=== PATIENT | female | born 1975 | race Caucasian/White ===

== ENCOUNTER 2019-01-08 05:40 | Observation (INO) | payer OTHER ==
--- NOTE | 2019-01-06 07:54 | PREOPHP ---
DATE OF ADMISSION: 01/08/2019 The patient is coming on Tuesday, January 08, 2019, for a surgical procedure. HISTORY OF PRESENT ILLNESS: This is a 43-year-old female 5, para 3, abortions 2, living 3 [facility], a history of loss of urine with urgency and Valsalva maneuvers for a long time. The patient now has been getting worse to the point that she has to wear a pad. She was also told to have a blad dennis prolapse by another physician and she was referred to me. She suffers from constipation and she has an IUD for 11 years without periods. The patient history ____ breast implants. The patient is a smoker. ALLERGIES: SHE IS ALLERGIC TO PENICILLIN. MEDICATIONS: She is on Wellbutrin. FAMILY HISTORY: Hypertension. REVIEW OF SYSTEMS: The patient has no heart condition. No lung disease. She smokes 3 to 6 cigarett es a day for the last 15 years and she drinks only every 2 weeks. The patient has no endocrine probl ems. No lung problems. No other systems problems and is noncontributory. She has been ALLERGIC TO P ENICILLIN and she has a family history for hypertension. PHYSICAL EXAMINATION: VITAL SIGNS: Stable. The blood pressure is 118/80, pulse is 80, respirations 16. She weighs 185. She is 5 feet 2 inches. HEAD AND NECK: Normal. BREASTS: Soft, nontender, with implants. CHEST: Clear. HEART: Normal sinus rhythm. BACK: Normal. ABDOMEN: Soft, nontender, no masses. GENITALIA: With a cystourethrocele grade III, and uterus hypertrophic normal size, retroverted, flex ed, painful mobilization, rectocele grade III and adnexa were nonpalpable. On the ultrasound that the patient had at her clinic it was just with a hypertrophic uterus without a ny findings of malignancies or any growth. Both ovaries were normal. The patient was advised for an anterior and posterior repair with a sling and a graft. She has been advised of the possible risks and possible complications of the procedure with her alternatives and options. Written information w as provided about the sling versus no sling and she had agreed to go ahead with the procedure without any doubts and she had been given all the facts and she has been given her options and possible comp lications of the graft and sling and she agreed to go ahead with the procedure after reading all the possible complications, risks, or benefits of it. DIAGNOSES: Cystourethrocele grade III with mixed incontinence, rectocele grade III with constipation and hypertrophic uterus. PLAN: She is undergoing an anterior and posterior repair with a sling and a graft without a hysterec terrence and due to the fact that the uterus is slightly hypertrophic, but normal size and not prolapse. Dictated By: IMTIAZ PRINCE/RODGER Conf#: [id number] DID#: [id number]
[2019-01-07 16:39] VITALS: Ht 160 cm; Wt 85.5 kg
[~2019-01-08] VITALS: Ht 160 cm; Wt 85.5 kg
[2019-01-08] VITALS (27 sets, daily range): BP systolic 92–136; BP diastolic 33–83; PULSE 66–93; RESP 10–25
[2019-01-08] MEDS ORDERED: ONDANSETRON 4 MG INJ ONE (07:00)
[2019-01-08] MEDS ORDERED: CEFAZOLIN 1 GM INJ ONE ×2 (07:00→08:08)
[2019-01-08] MEDS ORDERED: DEXAMETHASONE 4 MG/ML 5 ML INJ ONE (07:00)
[2019-01-08] MEDS ORDERED: SEVOFLURANE 15 MIN ONE (07:00)
[2019-01-08] MEDS ORDERED: BUPIVACAINE 0.5%/EPI (SDV) 30 ML INJ ONE ×2 (07:02→09:27)
[2019-01-08] MEDS ORDERED: POLYMYXIN/BACITRACIN 1L IRRIG ONE (07:02)
[2019-01-08] MEDS ORDERED: THROMBIN (BOVINE) 5,000 UNIT VIAL TP ONE (07:02)
--- NOTE | 2019-01-08 07:18 | PREAC ---
Date/Time of Note Date/Time of Note DATE: 01/08/19 TIME: 07:16 Anesthesia Eval and Record Evaluation Time Pre-Procedure Interview DATE: 01/08/19 TIME: 07:16 Age 43 Sex female NPO: 8 hrs Preoperative diagnosis cystourethrocoele, rectoceole Planned procedure anterior posterior sling repair Past Medical History Past Medical History: Includes Pulm: Smoking Hx Psych: Depression, Anxiety Surgery & Anesthesia Issues No known issue Meds Anticoagulation: No Beta Priscilla within 24 hr: No Reason Beta Rpiscilla not given: Pt. not on B-Priscilla Meds reviewed: Yes Allergies Allergies Reviewed: Yes Labs/Studies Labs Reviewed: Reviewed by anesthesiologist test: Negative Pre-procedure Exam Last vitals Vital Signs Date Temp Pulse Resp B/P (MAP) Pulse Ox O2 O2 Flow FiO2 Time Delivery Rate 01/08/19 97.6 71 21 132/73 97 Room Air 05:54 (92) Airway: Adequate mouth opening, Adequate thyromental dist Mallampati: Mallampati III Teeth: Normal Lung: Normal Heart: Normal ASA Physical Status ASA physical status: 2 Emergency: None Planned Anesthetic General/MAC: ETT Planned Pain Management Sub-arachniod narcotics, Single shot nerve block, Parenteral pain med, Other neuraxial med, Local by surgeon Pre-operative Attestations Prior to commencing anesthesia and surgery, the patient was re-evaluated, there was verification of: *The patient's identity *The results of appropriate recent lab work and preoperative vital signs *The above evaluation not changing prior to induction *Anesthetic plan, risk benefits, alternative and complications discussed with patient/family; questions answered; patient/family understands, accepts and wishes to proceed. DEVYN CRANE MD Jan 08, 2019 07:18
[2019-01-08] MEDS ORDERED: SUCCINYLCHOLINE CHLORIDE 100 MG/5 ML SYG IV ONE (07:27)
[2019-01-08] MEDS ORDERED: PROPOFOL 20 ML ONE (07:27)
[2019-01-08] MEDS ORDERED: LIDOCAINE 2% (SDV) 5 ML INJ ONE (07:27)
[2019-01-08] MEDS ORDERED: FENTAnyl 50 MCG/ML VIAL ONE (07:27)
[2019-01-08] MEDS ORDERED: ROCURONIUM 50 MG INJ ONE (07:27)
[2019-01-08] MEDS ORDERED: MIDAZOLAM 1 MG/ML 2 ML INJ ONE (07:27)
[2019-01-08] MEDS ORDERED: METOCLOPRAMIDE 10 MG INJ ONE (07:28)
[2019-01-08] MEDS ORDERED: LABETALOL HCL 20MG INJ IV PRN (07:30)
[2019-01-08] MEDS ORDERED: hydrALAzine 20 MG INJ IV PRN (07:30)
[2019-01-08] MEDS ORDERED: MEPERIDINE 25 MG INJ IV PRN (07:30)
[2019-01-08] MEDS ORDERED: LORAZEPAM 2 MG INJ IV PRN (07:30)
[2019-01-08] MEDS ORDERED: KETOROLAC 30 MG INJ IV PRN (07:30)
[2019-01-08] MEDS ORDERED: MIDAZOLAM 1 MG/ML 2 ML INJ IV PRN (07:30)
[2019-01-08] MEDS ORDERED: IPRATROPIUM (NEB) 0.5 MG/2.5 ML AMP HHN PRN (07:30)
[2019-01-08] MEDS ORDERED: DIPHENHYDRAMINE 50 MG INJ IV PRN (07:30)
[2019-01-08] MEDS ORDERED: HYDROmorphONE 1 MG/5 ML IV SYRINGE IV PRN ×3 (07:30)
[2019-01-08] MEDS ORDERED: ONDANSETRON 4 MG INJ IV PRN (07:30)
[2019-01-08] MEDS ORDERED: LEVALBUTEROL (NEB) 1.25 MG/0.5 ML AMP HHN PRN (07:30)
[2019-01-08] MEDS ORDERED: HALOPERIDOL 5 MG INJ IV PRN (07:30)
[2019-01-08] MEDS ORDERED: FENTAnyl 50 MCG/ML VIAL IV PRN ×2 (07:30)
[2019-01-08] MEDS ORDERED: morphine SULFATE/PF (10 MG/10 ML) INJ ONE (07:50)
[2019-01-08] MEDS ORDERED: EPINEPHrine 1 MG INJ ONE (07:52)
--- NOTE | 2019-01-08 10:17 | PAC ---
Date/Time of Note Date/Time of Note DATE: 01/08/19 TIME: 10:16 Post-Anesthesia Notes Post-Anesthesia Note Last documented vital signs Vital Signs Date Temp Pulse Resp B/P (MAP) Pulse Ox O2 O2 Flow FiO2 Time Delivery Rate 01/08/19 97.6 71 21 132/73 97 Room Air 05:54 (92) Activity: WNL Respiratory function: WNL Cardiovascular function: WNL Mental status: Baseline Pain reasonably controlled: Yes Hydration appropriate: Yes Nausea/Vomiting absent: Yes DEVYN CRANE MD Jan 08, 2019 10:17
--- NOTE | 2019-01-08 10:29 | HPN ---
Date/Time of Note Date/Time of Note DATE: 01/08/19 TIME: 10:29 Interval H&P Admission Note Pt. seen H&P reviewed: No system changes IMTIAZ LYNN MD Jan 08, 2019 10:29
[2019-01-08] MEDS ORDERED: HYDROCODONE/APAP (5/325) TAB PO PRN ×2 (10:30)
[2019-01-08] MEDS: KETOROLAC 30 MG INJ IV SCH ×3 (10:30→22:19)
[2019-01-08] MEDS ORDERED: ZOLPIDEM 5 MG TAB PO PRN (10:30)
[2019-01-08] MEDS ORDERED: DIPHENHYDRAMINE 50 MG CAP PO PRN (10:30)
--- NOTE | 2019-01-08 10:32 | SIPON ---
Date/Time of Note Date/Time of Note DATE: 01/08/19 TIME: 10:29 Operative Report Preoperative Diagnosis Cystourethrocele grade 3 with mixed incontinence Rectocele grade 3 with constipation Hypertrophic uterus prolapse grade 2 Postoperative Diagnosis Same Operation/Procedure Performed Anterior and posterior repair Suburethral sling Acell and Xenform graft Cystoscopy Surgeon see signature line nursing home assistant automotive specialty technician Anesthesia: general Estimated blood loss: 50 - 100 ml's Transfusion Required none Specimen Vaginal mucosa Grafts/Implants none Complications none IMTIAZ LYNN MD Jan 08, 2019 10:32
[2019-01-08] MEDS ORDERED: ONDANSETRON INJ 6 MG in DEXTROSE 5% 50 ML IVPB PRN (11:00)
[2019-01-08] MEDS: LACTATED RINGER'S 1,000 ML IV SCH ×2 (11:30→17:53)
--- NOTE | 2019-01-08 11:38 | OPR ---
DATE OF OPERATION: 01/08/2019 PREOPERATIVE DIAGNOSES: Cystourethrocele grade III, with mixed incontinence, rectocele grade III wit h constipation, hypertrophic uterus prolapse, grade II. POSTOPERATIVE DIAGNOSES: Cystourethrocele grade III, with mixed incontinence, rectocele grade III wi th constipation, hypertrophic uterus prolapse, grade II. OPERATION PERFORMED: Anterior and posterior repair, suburethral sling, ACell and Zenform graft and c ystoscopy. ANESTHESIOLOGIST: Dr. Milan. COMPLICATIONS: None. PROCEDURE: The patient was given general and spinal epidural anesthesia, placed in the lithotomy pos ition. The perineal and vaginal area were prepped and draped. The vaginal examination revealed that there was a grade III rectocele and cystourethrocele. The uterus was very hypertrophic with a very large cervix and an IUD and had prolapse, grade II only. The vaginal speculum was applied. The Fole y catheter was placed in and a midline incision was made 2 cm below the urethral meatus all the way t o the cervix. The injection of Xylocaine and epinephrine was given underneath the bladder at the freddy ction of the marcelino-urethral fascia. Xylocaine and epinephrine was injected and a midline incision was made. The dissection of the bladder from the anterior vaginal mucosa was done digitally and with Me cordellbaum and the dissection was carried all the way up to behind the obturator internal muscle. The bladder was sutured and plicated with a pursestring suture with 2-0 Vicryl and the suburethral sling was placed. The Obtryx sling was applied at the level of the mid urethra by localizing the obturator membrane at the level of the clitoris 2 cm below the urethral meatus, 2 cm below the adductor longus tendon. A heath was done on the skin, and the entrance of the needle was done in both sides and perf orating the membrane of the obturator and reaching the paraurethral area where the sling was attached to the needle, and the needle was brought up, bringing the arm of the sling through the obturator ca nal. A piece of Zenform and a piece of ACell graft was placed on the urethral area and was fixed to the chahal with a 2-0 Vicryl and then the sling was approximated to these structures to prevent pressu re on the bladder. The remnant of the sleeves of the sling were cut through at the level of the skin and the entrance was sealed with Dermabond. The other side of the sling was covered up with a piece of Zenform and the vagina was closed with 2-0 Vicryl suture vertically interrupted sutures. A cysto scopy was done and apparently everything looked okay although we had technical problems with the cyst oscope. Posterior repair was started by making a triangular incision at the level of the perineum. Injection of the same Xylocaine and epinephrine was injected posteriorly and the separation of the mu cosa from the rectocele was done and a vertical incision midline was made to about 5 cm at the vagina l canal. The rectocele was reduced with 2-0 Vicryl suture. The remnant of vaginal mucosa was trimme d and the vaginal mucosa was closed with interrupted sutures with 2-0 Vicryl. At the perineal area, the levator ani were tucked from one side to the other side with an 0 Vicryl and the lift of the marcelino neum was observed and the rest of the perineum was closed with 2-0 Vicryl and 3-0 Vicryl and then Simone form gauze was left in the vagina for pressure, and the patient tolerated the procedure well and left the OR awake and stable. Sponge counts and instrument counts were correct. Intravenous antibiotics were given for prophylaxis. Blood loss was minimal, less than 100 mL, and the urine was clear at th e end of the procedure. A note should be placed that Surgicel was placed in both corners at the leve l of the internal obturator muscle for control of venous bleeding, which was successful. Dictated By: IMTIAZ PRINCE/RODGER Conf#: [id number] DID#: [id number] CC: IMTIAZ LYNN MD;*EndCC*
[2019-01-08] MEDS: METOCLOPRAMIDE 10 MG TAB PO SCH ×3 (12:00→23:57)
--- NOTE | 2019-01-08 13:19 | PAC ---
Date/Time of Note Date/Time of Note DATE: 01/08/19 TIME: 13:19 Post-Anesthesia Notes Post-Anesthesia Note Last documented vital signs Vital Signs Date Temp Pulse Resp B/P (MAP) Pulse Ox O2 O2 Flow FiO2 Time Delivery Rate 01/08/19 Nasal 2.0 12:19 Cannula 01/08/19 97.8 12:10 01/08/19 66 15 121/60 97 12:07 (80) Activity: WNL Respiratory function: WNL Cardiovascular function: WNL Mental status: Baseline Pain reasonably controlled: Yes Hydration appropriate: Yes Nausea/Vomiting absent: Yes DEVYN CRANE MD Jan 08, 2019 13:19
[2019-01-08] MEDS: CEFAZOLIN 1 GM/50 ML (PMX) 50 ML IVPB SCH ×2 (15:32→22:13)
[2019-01-08] MEDS: ACETAMINOPHEN 325 MG TAB PO PRN (23:57)
[2019-01-09] MEDS: LACTATED RINGER'S 1,000 ML IV SCH ×3 (02:20→18:20)
[2019-01-09 05:00] VITALS: BP 106/62; PULSE 88; RESP 18
[2019-01-09] MEDS: KETOROLAC 30 MG INJ IV SCH ×4 (05:25→21:56)
[2019-01-09] MEDS: CEFAZOLIN 1 GM/50 ML (PMX) 50 ML IVPB SCH ×2 (05:25→14:00)
[2019-01-09] MEDS: METOCLOPRAMIDE 10 MG TAB PO SCH ×4 (05:26→23:30)
[2019-01-09 07:10] VITALS: BP 105/55; PULSE 82; RESP 15
[2019-01-09 14:47] VITALS: BP 104/57; PULSE 89; RESP 14
[2019-01-09 19:59] VITALS: BP 110/68; PULSE 87; RESP 18
--- NOTE | 2019-01-09 20:38 | PN ---
Date/Time of Note Date/Time of Note DATE: 01/09/19 TIME: 20:36 Assessment/Plan Lines/Catheters IV Catheter Type (from Nrs): Saline Lock Mendez in Place (from Nrsg): No Subjective 24 Hr Interval Summary Day first after A&P repair sling and graft Patient is afebrile but white count is elevated She feels bloated The report today was that she was voiding well and passing gases and tolerating diet I will start her on Keflex prophylactically and will repeat his CBC tomorrow to check on her white count to be able to send her home if it is coming down Constitutional: no complaints Feeding: advancing diet Detailed Summary Eyes: no complaints ENT: no complaints Respiratory: no complaints Cardiovascular: no complaints Gastrointestinal: no complaints Genitourinary: no complaints Musculoskeletal: no complaints Skin: no complaints Neurologic: no complaints Endocrine: no complaints Lymphatic: no complaints Psychological: no complaints, nl mood/affect Immunologic: no complaints Exam/Review of Systems Vital Signs Vitals Vital Signs Date Temp Pulse Resp B/P (MAP) Pulse Ox O2 O2 Flow FiO2 Time Delivery Rate 01/09/19 99.0 87 18 110/68 96 Room Air 19:59 (82) 01/08/19 2.0 13:30 Intake and Output 01/08/19 01/08/19 01/09/19 1515:00 23:00 07:00 IntakeIntake Total 2500 ml 170 ml 1710 ml OutputOutput Total 610 ml 820 ml 1600 ml BalanceBalance 1890 ml -650 ml 110 ml Results Result Diagram: 01/09/19 0447 01/09/19 0447 IMTIAZ LYNN MD Jan 09, 2019 20:38
[2019-01-09] MEDS: ACETAMINOPHEN 325 MG TAB PO PRN (21:50)
[2019-01-09] MEDS: CEPHALEXIN 500 MG CAP PO SCH (23:30)
[2019-01-10 00:46] VITALS: BP 118/58; PULSE 102; RESP 18
[2019-01-10] MEDS: LACTATED RINGER'S 1,000 ML IV SCH ×2 (02:20→10:20)
[2019-01-10] MEDS: KETOROLAC 30 MG INJ IV SCH ×2 (04:05→10:30)
[2019-01-10] MEDS: ACETAMINOPHEN 325 MG TAB PO PRN ×2 (05:30→11:44)
[2019-01-10] MEDS: CEPHALEXIN 500 MG CAP PO SCH ×2 (05:31→11:35)
[2019-01-10] MEDS: METOCLOPRAMIDE 10 MG TAB PO SCH ×2 (05:31→11:35)
[2019-01-10 07:59] VITALS: BP 99/66; PULSE 88; RESP 18
--- NOTE | 2019-01-10 11:07 | PD.PPDC ---
PAN HELPER Discharge Instruction Condition [id number] Patient Condition: [id number] Good Diet [id number] Diet: Yaboj4s Resume Regular Diet Activity/Restrictions [id number] Activity: Qnoac6w Normal Activity May Shower [id number] Restrictions: [id number] No Exercising No Lifting No Driving No Sexual Activity Nothing in the Vagina No Rentz No Tampons, douche Follow-up Follow-up with Physician: 1, Week/Weeks Return to clinic for [id number] ASSEMBLER MOLDED FRAMES Instructions: [id number] Fever greater than 101 Chills Worsening abdominal pain Excessive Vaginal Bleeding More than 2 pads per hour Unable to tolerate diet [id number] Surgical Instructions: Fympf4g Incisional Drainage Incisional Redness IMTIAZ LYNN MD Jan 10, 2019 11:07
--- NOTE | 2019-01-10 11:14 | DS ---
Date/Time of Note Date/Time of Note DATE: 01/10/19 TIME: 11:08 Discharge Summary Admission/Discharge Info Admit Date/Time Jan 08, 2019 at 05:40 Discharge Date/Time January 10, 2019 Discharge Diagnosis Cystourethrocele grade 3 mixed incontinence Rectocele grade 3 constipation Patient Condition: Good Procedures Anterior and posterior repair Suburethral sling and graft Hx of Present Illness 43 years old female who has been referred to me for urinary stress incontinence and mixed incontinence and rectocele and constipation. She was referred to me by her primary doctor for reconstruction of her vagina since she has so much problems of loss of urine and accidents of urine incontinence. Also she had pelvic pressure. Vaginal reconstruction of the bladder and rectum was offered Hospital Course Patient did very good after surgery she was afebrile and she was kept one night first night for observation due to a vaginal packing and a Mendez catheter was placed. We needed to check her residual urine after the Mendez was removed and the packing was removed The patient had a white count elevation of 17,000 which was very high and we started her on antibiotics and I wanted to follow-up on a to see if I need to give her IV antibiotics are not. So her residual urine was good and we are discharging her today after 48 hours. The patient is states that she is in a lot of pain when she urinates for which she was given Keflex 500 mg every 6 hours and pyridium 200 mg 3 times a day. Also Tylenol combined with ibuprofen was given. Today the CBC came down to 14,000 after the starting of p.o. antibiotics. She is stable to go home and we will will follow her as an outpatient Follow-up Plan 1 week Primary Care Provider Not On Staff Doctor Time spent on discharge: < 30 minutes Pending Labs Laboratory Tests Test 01/10/19 04:35 01/10/19 06:21 White Blood Count 15.1 10^3/ul (4.8-10.8) Red Blood Count 4.13 10^6/ul (4.20-5.40) Hemoglobin 12.1 g/dl (12.0-16.0) Hematocrit 36.6 % (37.0-47.0) Mean Corpuscular Volume 88.6 fl (82.0-101.0) Mean Corpuscular Hemoglobin 29.3 pg (29.0-33.0) Mean Corpuscular Hemoglobin Concent 33.1 g/dl (32.0-37.0) Red Cell Distribution Width 12.0 % (11.5-14.5) Platelet Count 243 10^3/UL (140-415) Mean Platelet Volume 10.0 fl (7.4-10.4) Immature Granulocytes % 0.600 % (0.001-0.429) Neutrophils % 74.8 % (39.0-77.0) Lymphocytes % 15.0 % (15.0-51.0) Monocytes % 8.8 % (0.0-11.0) Eosinophils % 0.5 % (0.0-7.0) Basophils % 0.3 % (0.0-2.0) Nucleated Red Blood Cells % 0.0 /100WBC (0.0-0.0) Immature Granulocytes # 0.090 10^3/ul (0.0-0.031) Neutrophils # 11.3 10^3/ul (1.6-7.5) Lymphocytes # 2.3 10^3/ul (0.8-2.9) Monocytes # 1.3 10^3/ul (0.3-0.9) Eosinophils # 0.1 10^3/ul (0.0-0.5) Basophils # 0.0 10^3/ul (0.0-0.1) Nucleated Red Blood Cells # 0.0 10^3/ul (0.0-0.0) Lab Scanned Report LAB [id number] IMTIAZ LYNN MD Jan 10, 2019 11:14
== END 2019-01-10 12:08 | disposition home or self-care (01) ==
LOC: REC 05:40 → INTOOBSV 05:40 → EDSTATUS 07:30 → MS1 11:40
PROVIDERS: ADMIT Obstetrics & Gynecology; ATTEND Obstetrics & Gynecology
DX: N81.3 Complete uterovaginal prolapse (principal); N39.46 Mixed incontinence; K59.00 Constipation, unspecified; N88.8 Other specified noninflammatory disorders of cervix uteri; Z97.5 Presence of (intrauterine) contraceptive device; Z88.0 Allergy status to penicillin; Z82.49 Family history of ischemic heart disease and other diseases of the circulatory system
CPT/HCPCS: 57260; 80051; 81001; 82565; 84520; 85025; 87086; 88304; C1771; C1781; J0171; J0690; J1100; J1885; J2250; J2274; J2405; J2765; J3010; J7120; Q4166; Z7500; Z7512; Z7610; 99217; G0378